=== PATIENT | female | born 1990 | race Caucasian/White ===

== ENCOUNTER → 2016-09-09 | Outpatient (CLI) | payer OTHER ==
[~2016-09-09] MED LIST: DINOPROSTONE 10 MG INSERT.ER VAGINAL ONE
[2016-09-09 17:00] VITALS: BP 119/77; PULSE 93; RESP 16; TEMP 97.5; BMI 26.6
== END | disposition home or self-care (01) ==
LOC: UNDOADMIN 16:38 → FBPOP 16:38 → 4FBP 16:38 → EDSTATUS 17:00 → UNDODISIN 17:40
PROVIDERS: ATTEND Obstetrics & Gynecology
DX: Z34.93 Encounter for supervision of normal pregnancy, unspecified, third trimester (principal)
CPT/HCPCS: 59025

== ENCOUNTER 2016-09-10 06:35 | Inpatient (IN) | payer OTHER ==
[2016-09-10] MEDS ORDERED: CARBOPROST TROMETHAMINE 250 MCG/ML 1 ML AMP IM PRN (06:51)
[2016-09-10] MEDS ORDERED: OXYTOCIN 10 UNIT/ML 1 ML VIAL IM PRN (06:51)
[2016-09-10] MEDS ORDERED: TERBUTALINE 1 MG/ML VIAL SQ PRN (06:51)
[2016-09-10] MEDS ORDERED: METHYLERGONOVINE 0.2 MG/ML 1 ML AMP IM PRN (06:51)
[2016-09-10] MEDS ORDERED: LIDOCAINE 1% (PF) 10 MG/ML (30 ML SDV) SQ PRN (06:51)
[2016-09-10 06:58] VITALS: BMI 26.6
[2016-09-10] MEDS: LACTATED RINGERS 1,000 ML IV SCH ×3 (06:58→15:48)
[2016-09-10] MEDS ORDERED: OXYTOCIN 30 UNITS/500 ML NS 30 UNIT in SALINE 1 500ML.BAG IV SCH ×2 (07:00→19:45)
[2016-09-10 07:05] LABS: Basophils # (A) 0.1 k/uL (0-0.2); Basophils % (A) 1 %; CH 30.7; CHCM 34.1; Eosinophils # (A) 0.1 k/uL (0-0.7); Eosinophils % (A) 1 %; HCT 37.7 % (34.0-46.0); HDW 2.61; HGB 12.2 gm/dL (11.4-16.0); Luc # (Auto) 0.15; Luc % (Auto) 2; Lymphocytes # (A) 1.9 k/uL (1.0-4.8); Lymphocytes % (A) 20 %; MCH 29.4 pg (25.0-35.0); MCHC 32.5 g/dL (31.0-37.0); MCV 90.6 fL (80.0-100.0); Mean Platelet Volume 8.8; Monocytes # (A) 0.4 k/uL (0-1.0); Monocytes % (A) 4 %; Neutrophils # (A) 7.1 k/uL (1.3-7.7); Neutrophils % (A) 73 %; RBC 4.17 m/uL (3.80-5.40); RDW 13.4 % (11.5-15.5); WBC 9.7 k/uL (3.8-10.6); WBC (Perox) 10.15
[2016-09-10] MEDS ORDERED: BUTORPHANOL 1 MG/ML 1 ML VIAL IV PRN (12:11)
[2016-09-10] MEDS ORDERED: SODIUM CHLORIDE 0.9% 100 ML BAG ONE (15:35)
[2016-09-10] MEDS ORDERED: BUPIVACAINE (PF) 0.25% 30 ML VIAL ONE (15:35)
[2016-09-10] MEDS ORDERED: fentaNYL (PF) 50 MCG/ML 5 ML AMP ONE (15:35)
[2016-09-10] MEDS ORDERED: BUPIVACAINE (PF) 0.25% 25 ML, fentaNYL (PF) 200 MCG in SODIUM CHLORIDE 0.9% 71 ML EPIDURAL ONE (17:10)
--- NOTE | 2016-09-10 19:39 | P.HPOB ---
History of Present Illness H&P Date: 09/10/16 Chief Complaint: Intrauterine at term Patient is a 26-year-old at 39 weeks gestation who arrives for induction of labor. Her course was unremarkable and she is feeling well at this time. She was brought in last night for Cervidil ripening however her cervix was dilated to 1 cm that point and she was then sent home. Admission at that time was canceled this morning artificial rupture membranes was performed and clear fluid is noted. She is beginning to contract and overall she is doing well. Pertinent labs did include A+ blood type Rh antibody was negative rubella was immune hepatitis B surface antigen and RPR and GBS were negative. Assessment intrauterine at term. Plan expect spontaneous vaginal delivery. Past Medical History Past Medical History: No Reported History History of Any Multi-Drug Resistant Organisms: None Reported Past Surgical History: No Surgical Hx Reported Past Anesthesia/Blood Transfusion Reactions: No Reported Reaction Past Psychological History: No Psychological Hx Reported Smoking Status: Never smoker Past Alcohol Use History: None Reported Past Drug Use History: None Reported - Past Family History Mother Family Medical History: Cancer Additional Family Medical History / Comment(s): Breast Medications and Allergies Home Medications Medication Instructions Recorded Confirmed Type Pnv with Ca,No.72/Iron/FA 1 each PO DAILY 09/09/16 09/10/16 History [ Plus Tablet] Allergies Allergy/AdvReac Type Severity Reaction Status Date / Time Sulfa (Sulfonamide Allergy Rash/Hives Verified 09/09/16 16:53 Antibiotics) Exam Osteopathic Statement: *. No significant issues noted on an osteopathic structural exam other than those noted in the History and Physical/Consult. - Vital Signs Vital signs: Vital Signs Temp Pulse Resp BP Pulse Ox 09/10/16 19:00 99.6 F 78 16 120/62 09/10/16 18:45 107 H 16 112/61 97 09/10/16 18:30 100 F H 103 H 16 114/66 97 09/10/16 06:47 97.0 F L 86 16 108/66 98 Intake and Output 09/10/16 09/10/16 09/10/16 06:59 14:59 22:59 Intake Total 1000 Balance 1000 Intake: Intake, IV Titration 1000 Amount Lactated Ringers 1,000 ml 1000 @ 125 mls/hr IV .Q8H MAURICIO Rx#:[id number] Other: # Voids 0 Weight 70.307 kg - OBG Physical Exam Breast: both: normal (no masses) Abdomen: bowel sounds normal, no diffuse tenderness, no bruit present, no guarding noted, no hepatomegaly, no splenomegaly, no mass Vulva: both: normal Vagina: normal moisture, no discharge Cervix: no lesion, no discharge Uterus: normal size, normal contour Adnexa: both: normal Anus/Rectum: normal perianal skin, no rectal mass, no hemorrhoids, heme negative Results Result Diagrams: 09/10/16 06:50
--- NOTE | 2016-09-10 19:40 | P.PROBDLV ---
Vaginal Delivery Note - . Vaginal Delivery Note: Patient progressed to complete and pushing with spontaneous vaginal delivery of a viable male over a second-degree midline laceration. Following delivery of the head mouth and nares were bulb suctioned anterior posterior shoulders were delivered with gentle downward and upward traction. Once baby was fully delivered he was placed on his mother's abdomen where the umbilical cord was clamped cut usual fashion an nursery personnel was present to assume care. Placenta was then delivered intact and Pitocin was added to the IV. scores and weight are not on the chart but both mother and baby appear stable. Secondary midline laceration was then repaired with 3-0 Vicryl following 1% Xylocaine for analgesia in usual fashion.
[2016-09-10] MEDS ORDERED: diphenhydrAMINE 50 MG/ML 1 ML VIAL IVP PRN ×2 (19:43)
[2016-09-10] MEDS ORDERED: diphenhydrAMINE 25 MG CAP PO PRN (19:43)
[2016-09-10] MEDS ORDERED: Acetaminophen-Codeine 300-30mg TAB PO PRN ×2 (19:43)
[2016-09-10] MEDS ORDERED: LANOLIN CREAM 5 GM TUBE TOPICAL PRN (19:43)
[2016-09-10] MEDS ORDERED: SIMETHICONE 80 MG CHEWABLE PO PRN (19:43)
[2016-09-10] MEDS ORDERED: HYDROCORTISONE 2.5% RECTAL CREAM 30 GM TUBE RECTAL PRN (19:43)
[2016-09-10] MEDS ORDERED: ZOLPIDEM 5 MG TAB PO PRN (19:43)
[2016-09-10] MEDS ORDERED: BENZOCAINE/MENTHOL SPRAY 1 GM/SPRAY AEROSOL TOPICAL PRN (19:43)
[2016-09-10] MEDS ORDERED: diphenhydrAMINE 50 MG CAP PO PRN (19:43)
[2016-09-10] MEDS ORDERED: WITCH HAZEL 1 EACH MED..PAD TOPICAL PRN (19:43)
[2016-09-11] MEDS: SENNOSIDES-DOCUSATE SODIUM 1 EACH TAB PO SCH ×3 (02:57→20:25)
[2016-09-11] MEDS: IBUPROFEN 600 MG TAB PO PRN ×2 (04:17→16:20)
--- NOTE | 2016-09-11 07:39 | P.DS ---
Providers Date of admission: 09/10/16 06:35 Expected date of discharge: 09/11/16 Attending physician: Phi Smith Hospital Course: Patient is doing very well day 1. She is ambulating, voiding, and tolerating her diet. She voices no complaints. Her vital signs stable and afebrile. Her heart is regular, lungs are clear, abdomen is soft and nontender. Uterus is firm below the umbilicus and her lochia is reported be light. She plans going home tonight. Prescriptions for pain medicine a been provided including Tylenol 3 and Motrin. Discharge instructions are thoroughly reviewed and all questions are answered for her prior to her discharge. We'll plan discharged home tonight. Assessment day 1. Plan discharged home tonight follow up with me in 6 weeks. Patient Condition at Discharge: Good Plan - Discharge Summary New Discharge Prescriptions: Acetaminophen-Codeine 300-30mg [Tylenol #3] 1 tab PO Q4H PRN #30 tablet PRN Reason: Pain Ibuprofen [Motrin] 600 mg PO Q6HR PRN #30 tab PRN Reason: Pain Discharge Medication List Pnv with Ca,No.72/Iron/FA [ Plus Tablet] 1 each PO DAILY 09/09/16 [ History] Acetaminophen-Codeine 300-30mg [Tylenol #3] 1 tab PO Q4H PRN #30 tablet [Rx] Ibuprofen [Motrin] 600 mg PO Q6HR PRN #30 tab 09/11/16 [Rx] Follow up Appointment(s)/Referral(s): Phi Smith DO [Doctor of Osteopathic Medicine] - 6 Weeks Activity/Diet/Wound Care/Special Instructions: No heavy lifting, limit stairs and driving and pelvic rest. If any high temperatures, heavy bleeding, or severe pain call my office
[2016-09-11] MEDS: ACETAMINOPHEN TAB 325 MG TAB PO PRN ×2 (08:20→19:52)
[2016-09-12] MEDS: IBUPROFEN 600 MG TAB PO PRN (03:38)
[2016-09-12] MEDS: ACETAMINOPHEN TAB 325 MG TAB PO PRN (08:00)
[2016-09-12 08:54] VITALS: BP 110/64; PULSE 71; RESP 17; TEMP 98
[2016-09-12] MEDS: SENNOSIDES-DOCUSATE SODIUM 1 EACH TAB PO SCH (08:56)
--- NOTE | 2016-09-12 11:29 | P.DS ---
Providers Date of admission: 09/10/16 06:35 Expected date of discharge: 09/12/16 Attending physician: Phi Smith [facility] Course: In the end yesterday patient did not go home. She stayed until today due to feeding issues with baby. There've been no changes overnight she is still stable for discharge and will go home today. Discharge instructions were again reviewed and all questions are answered for her no other changes to yesterday discharge summary are present. Patient Condition at Discharge: Good Plan - Discharge Summary New Discharge Prescriptions: Acetaminophen-Codeine 300-30mg [Tylenol #3] 1 tab PO Q4H PRN #30 tablet PRN Reason: Pain Ibuprofen [Motrin] 600 mg PO Q6HR PRN #30 tab PRN Reason: Pain Discharge Medication List Pnv with Ca,No.72/Iron/FA [ Plus Tablet] 1 each PO DAILY 09/09/16 [ History] Acetaminophen-Codeine 300-30mg [Tylenol #3] 1 tab PO Q4H PRN #30 tablet [Rx] Ibuprofen [Motrin] 600 mg PO Q6HR PRN #30 tab 09/11/16 [Rx] Follow up Appointment(s)/Referral(s): Phi Smith DO [Doctor of Osteopathic Medicine] - 6 Weeks Activity/Diet/Wound Care/Special Instructions: No heavy lifting, limit stairs and driving and pelvic rest. If any high temperatures, heavy bleeding, or severe pain call my office Discharge Disposition: HOME SELF-CARE
== END 2016-09-12 13:10 | disposition home or self-care (01) | DRG 775 ==
LOC: 4FBP 06:35
PROVIDERS: ADMIT Obstetrics & Gynecology; ATTEND Obstetrics & Gynecology
PROC: 10E0XZZ Delivery of Products of Conception, External Approach (ICD-10-PCS; principal; 2016-09-10)
PROC: 0KQM0ZZ Repair Perineum Muscle, Open Approach (ICD-10-PCS; 2016-09-10)
PROC: 10907ZC Drainage of Amniotic Fluid, Therapeutic from Products of Conception, Via Natural or Artificial Opening (ICD-10-PCS; 2016-09-10)
PROC: 3E033VJ Introduction of Other Hormone into Peripheral Vein, Percutaneous Approach (ICD-10-PCS; 2016-09-10)
PROC: 3E0S3NZ Introduction of Analgesics, Hypnotics, Sedatives into Epidural Space, Percutaneous Approach (ICD-10-PCS; 2016-09-10)
DX: O70.1 Second degree perineal laceration during delivery (principal); Z37.0 Single live birth; Z88.2 Allergy status to sulfonamides; Z3A.39 39 weeks gestation of pregnancy; Z80.3 Family history of malignant neoplasm of breast
CPT/HCPCS: 85025; 88307

== ENCOUNTER → 2017-04-18 | Outpatient (CLI) | payer OTHER ==
[2017-04-18 16:40] LABS: Blood Urea Nitrogen 7 mg/dL (7-17); Non-African American GFR(MDRD) >60 (>60 ml/min/1.73 sqM)
== END | disposition home or self-care (01) ==
LOC: LABWHC1 16:09
PROVIDERS: ATTEND Psychiatry & Neurology Neurology
DX: R51 Headache (principal)
CPT/HCPCS: 36415; 82565; 84520

== ENCOUNTER → 2017-04-20 | Outpatient (CLI) | payer OTHER ==
--- NOTE | 2017-04-20 13:31 | MR ---
EXAMINATION TYPE: MR angio head wo con DATE OF EXAM: 04/20/2017 COMPARISON: Brain MR same date HISTORY: MIGRAINES TECHNIQUE: Time of flight images focusing on the [place] of [place] were performed without contrast. FINDINGS: Internal carotid arteries are patent, vertebrobasilar system is patent. There is no signifi cant stenosis. The origin of the right middle cerebral artery there is a small outpouching of the pos terior internal carotid artery on the right. This measures 1.5 mm on axial image 81 and is relatively symmetric as seen on axial image 74 on the left. There is a fenestration present along the anterior cerebral artery on the right. No filling defect to suggest dissection. IMPRESSION: Findings may representing congenital variants rather than small aneurysms, follow-up to assess for st ability.
--- NOTE | 2017-04-20 13:37 | MR ---
EXAMINATION TYPE: MR brain wo/w con DATE OF EXAM: 04/20/2017 COMPARISON: MR angiogram of the head same day HISTORY: MIGRAINES TECHNIQUE: Multiplanar, multisequence images of the brain and brainstem is performed without and with IV contras t, utilizing 14 mL intravenous MultiHance . FINDINGS: Diffusion weighted images demonstrate no evidence of a recent infarct or other diffusion ab normality. There is no extra-axial fluid collection or significant white matter signal abnormality, 2 punctate foci of hyperintensity in the left frontal white matter of questionable clinical significa nce. The ventricular system and cisternal spaces are normal in size and appearance. The brain volum e is age appropriate. Midline structures demonstrate normal morphology. The craniocervical junction appears within normal limits. Post contrast images demonstrate no abnormal enhancement. The dural venous sinuses appear pa tent. The visualized sinuses are clear and the globes are intact. IMPRESSION: Nonspecific white matter hyperintensities likely of no clinical significance but can be s een with migraine headaches. Follow-up as indicated.
== END | disposition home or self-care (01) ==
LOC: RADMRIMAIN 09:34
PROVIDERS: ATTEND Psychiatry & Neurology Neurology
DX: R90.82 White matter disease, unspecified (principal); I67.1 Cerebral aneurysm, nonruptured; D49.6 Neoplasm of unspecified behavior of brain
CPT/HCPCS: 70544; 70553; A9577

== ENCOUNTER → 2018-04-28 | Outpatient (CLI) | payer OTHER ==
[2018-04-28 13:08] LABS: HCT 34.8 % (34.0-46.0); HGB 11.5 gm/dL (11.4-16.0); MCH 29.6 pg (25.0-35.0); MCHC 33.2 g/dL (31.0-37.0); MCV 89.3 fL (80.0-100.0); Mean Platelet Volume 8.3; Platelet Count 241 k/uL (150-450); RBC 3.89 m/uL (3.80-5.40); WBC 10.2 k/uL (3.8-10.6)
[2018-04-28 13:25] LABS: Glucose 103 mg/dL (74-99)
== END | disposition home or self-care (01) ==
LOC: LABWHC1 12:37
PROVIDERS: ATTEND Obstetrics & Gynecology
DX: Z34.81 Encounter for supervision of other normal pregnancy, first trimester (principal); Z3A.00 Weeks of gestation of pregnancy not specified
CPT/HCPCS: 36415; 82565; 82947; 84443; 85027; 86762; 86780; 86850; 86900; 86901; 87340

== ENCOUNTER 2018-09-26 14:46 | Inpatient (IN) | payer OTHER ==
[2018-09-26] MEDS ORDERED: CARBOPROST TROMETHAMINE 250 MCG/ML 1 ML AMP IM PRN (15:40)
[2018-09-26] MEDS ORDERED: OXYTOCIN 10 UNIT/ML 1 ML VIAL IM PRN (15:40)
[2018-09-26] MEDS ORDERED: METHYLERGONOVINE 0.2 MG/ML 1 ML AMP IM PRN (15:40)
[2018-09-26] MEDS ORDERED: LIDOCAINE 0.5% (PF) 5 MG/ML (50 ML SDV) SQ PRN (15:40)
[2018-09-26] MEDS ORDERED: TERBUTALINE 1 MG/ML VIAL SQ PRN (15:40)
[2018-09-26] MEDS: LACTATED RINGERS 1,000 ML IV SCH ×2 (15:55→16:15)
[2018-09-26 16:24] LABS: Anisocytosis Slight; Basophils % (A) 0 %; Eosinophils # (A) 0.1 k/uL (0-0.7); Eosinophils % (A) 1 %; HGB 9.9 gm/dL (11.4-16.0); Hypochromasia Marked; Lymphocytes # (A) 1.8 k/uL (1.0-4.8); Lymphocytes % (A) 16 %; MCH 23.6 pg (25.0-35.0); MCHC 30.9 g/dL (31.0-37.0); MCV 76.2 fL (80.0-100.0); Mean Platelet Volume 8.2; Microcytosis Slight; Monocytes # (A) 0.4 k/uL (0-1.0); Monocytes % (A) 4 %; Neutrophils # (A) 8.6 k/uL (1.3-7.7); Neutrophils % (A) 76 %; Platelet Count 265 k/uL (150-450); Poikilocytosis Slight; WBC 11.2 k/uL (3.8-10.6)
[2018-09-26] MEDS ORDERED: SODIUM CHLORIDE 0.9% 100 ML BAG ONE (16:50)
[2018-09-26] MEDS ORDERED: ROPIVACAINE 5MG/ML 20ML VIAL ONE (16:50)
[2018-09-26] MEDS ORDERED: fentaNYL (PF) 50 MCG/ML 5 ML AMP ONE (16:50)
[2018-09-26 18:35] VITALS: BMI 29.0
[2018-09-26] MEDS ORDERED: diphenhydrAMINE 50 MG CAP PO PRN (18:45)
[2018-09-26] MEDS ORDERED: WITCH HAZEL 1 EACH MED..PAD TOPICAL PRN (18:45)
[2018-09-26] MEDS ORDERED: diphenhydrAMINE 25 MG CAP PO PRN (18:45)
[2018-09-26] MEDS ORDERED: SIMETHICONE 80 MG CHEWABLE PO PRN (18:45)
[2018-09-26] MEDS ORDERED: ZOLPIDEM 5 MG TAB PO PRN (18:45)
[2018-09-26] MEDS ORDERED: OXYTOCIN 20 UNITS/1000 ML NS 1,000 ML IV SCH (18:45)
[2018-09-26] MEDS ORDERED: HYDROCORTISONE 2.5% RECTAL CREAM 30 GM TUBE RECTAL PRN (18:45)
[2018-09-26] MEDS ORDERED: diphenhydrAMINE 50 MG/ML 1 ML VIAL IVP PRN ×2 (18:45)
[2018-09-26] MEDS ORDERED: BENZOCAINE/MENTHOL SPRAY 1 GM/SPRAY AEROSOL TOPICAL PRN (18:45)
[2018-09-26] MEDS ORDERED: LANOLIN CREAM 5 GM TUBE TOPICAL PRN (18:45)
[2018-09-26] MEDS ORDERED: ACETAMINOPHEN TAB 325 MG TAB PO PRN (18:45)
--- NOTE | 2018-09-26 18:49 | P.HPOB ---
History of Present Illness H&P Date: 09/26/18 Chief Complaint: Labor 28-year-old presents at 39 weeks and 5 days and labor. Her cervix changed in triage from 4 cm to 5 centers dilated, 80% effaced, and -2 station. She is slim every 1-3 minutes. heart tones 135-140 with moderate variability and reactive. She had an epidural for pain control. At 1711 amniotomy was performed and clear fluid noted. Her cervix was completely dilated at 1806. She pushed, and delivered a viable male over intact perineum under epidural anesthesia 1818. Head delivered OA, anterior shoulder delivered gentle downward guidance of the posterior shoulder and rest of body. Nose and mouth bulb suctioned, cord clamped and cut, infant placed on mother's abdomen. Apgars 9, 9, weight 8 lbs. 6 oz. Placenta delivered spontaneously, intact with three-vessel cord at 182. Vagina, cervix, perineum inspected. No lacerations noted. Estimated blood loss 100 mL. Mother and baby in stable condition. Past Medical History Past Medical History: No Reported History Additional Past Medical History / Comment(s): migraines History of Any Multi-Drug Resistant Organisms: None Reported Past Surgical History: No Surgical Hx Reported Past Anesthesia/Blood Transfusion Reactions: No Reported Reaction Past Psychological History: No Psychological Hx Reported Smoking Status: Former smoker Past Alcohol Use History: None Reported Past Drug Use History: None Reported - Past Family History Mother Family Medical History: Cancer Additional Family Medical History / Comment(s): Breast Medications and Allergies Home Medications Medication Instructions Recorded Confirmed Type Pnv,Calcium 72/Iron/Folic Acid 1 each PO DAILY 09/09/16 09/26/18 History [ Plus Tablet] Allergies Allergy/AdvReac Type Severity Reaction Status Date / Time Sulfa (Sulfonamide Allergy Rash/Hives Verified 09/26/18 14:53 Antibiotics) Exam Osteopathic Statement: *. No significant issues noted on an osteopathic structural exam other than those noted in the History and Physical/Consult. Vital Signs Temp Pulse Resp BP 09/26/18 18:27 98.4 F 91 18 129/81 09/26/18 14:55 96.7 F L 104 H 18 114/77 Intake and Output 09/26/18 09/26/18 09/26/18 06:59 14:59 22:59 Other: Weight 76.657 kg Results Result Diagrams: 09/26/18 15:55 Abnormal Lab Results - Last 24 Hours (Table) 09/26/18 Range/Units 15:55 WBC 11.2 H (3.8-10.6) k/uL Hgb 9.9 L (11.4-16.0) gm/dL Hct 32.0 L (34.0-46.0) % MCV 76.2 L (80.0-100.0) fL MCH 23.6 L (25.0-35.0) pg MCHC 30.9 L (31.0-37.0) g/dL RDW 16.0 H (11.5-15.5) % Neutrophils # 8.6 H (1.3-7.7) k/uL
[2018-09-26] MEDS: SENNOSIDES-DOCUSATE SODIUM 1 EACH TAB PO SCH (21:05)
[2018-09-26] MEDS: IBUPROFEN 600 MG TAB PO PRN (21:12)
--- NOTE | 2018-09-27 02:30 | P.MSEPDOC ---
Presenting Problems - Arrival Data Date of Arrival on Unit: 09/26/18 Time of Arrival on Unit: 15:40 Mode of Transport: Ambulatory - Complaint OB-Reason for Admission/Chief Complaint: Possible Onset of Labor Comment: pt present with c/o contractions getting stronger in the last hour, Medical History - Information : 2 Para: 1 Term: 1 : 0 Abortions: Spontaneous or Elective: 0 Number of Living Children: 1 - Gestational Age Gestational Age by MARIO ALBERTO (wks/days): 39 Weeks and 5 Days Review of Systems - Review of Systems Constitutional: No problems Breast: No problems ENT: No problems Cardiovascular: No problems Respiratory: No problems Gastrointestinal: No problems Genitourinary: No problems Musculoskeletal: No problems Neurological: No problems Skin: No problems Vital Signs - Temperature Temperature: 98.7 F Temperature Source: Axillary - Pulse Right Brachial Pulse Rate: 99 Pulse Assessment Method: Automatic Cuff - Respirations Respiratory Rate: 18 Oxygen Delivery Method: Room Air O2 Sat by Pulse Oximetry: 98 - Blood Pressure Right Arm Blood Pressure: 119/67 Blood Pressure Mean: 84 Blood Pressure Source: Automatic Cuff Medical Screen Scoring (Pre) - Cervical Exam Dilation: 4-7 cm = 2 Effacement: More than 50% = 2 Membranes: Intact - Uterine Contractions Frequency: > or = 36 weeks =2 Duration: > 40 seconds = 2 Intensity: N/A - Maternal Vital Signs Maternal Temperature: N/A Maternal Blood Pressure: N/A Signs of Preeclampsia: N/A Maternal Respirations: N/A - Pain Assessment Pain Scale Used: Numeric (1 - 10) Pain Intensity: 7 Pain Management Goal: 4 Pain Description: *Acute, Pressure Pain Radiation Location: none Pain Frequency: Intermittent Pain Duration: 1 Pain Duration Units: Hours Pain Behavior: Guarding, Moving Slowly, Vocalization Pain Aggravating Factors: Contractions - Maternal Trauma Maternal Trauma: N/A - Assessment Baseline FHR: 120 Heart Rate - NICHD Category: Category I (Normal) = 0 NST: Reactive Position: N/A Station: N/A - Total Score Total Score (Pre): 8 - Level of Risk Level of Risk: Medium (6-9) Physician Notification (Pre) - Physician Notified Physician Notified Date: 09/26/18 Physician Notified Time: 15:40 Physician/Practitioner Notifed:: Dr. Chawla Spoke With: Dr. Chawla - Notification Comment Comment: admit for labor Disposition - Disposition OB Disposition: Admit, LDRP Suite I agree with the RN Medical Screening Exam: Yes Risk & Benefit of care provided described in d/c instruction: Yes Diagnosis: ENCOUNTER FOR FULL-TERM UNCOMPLICATED DELIVERY
[2018-09-27] MEDS: IBUPROFEN 600 MG TAB PO PRN (07:35)
[2018-09-27] MEDS: SENNOSIDES-DOCUSATE SODIUM 1 EACH TAB PO SCH (07:36)
--- NOTE | 2018-09-27 08:35 | P.DS ---
Providers Date of admission: 09/26/18 15:45 Expected date of discharge: 09/27/18 Attending physician: Phi Smith Primary care physician: Stated None Hospital Course: Patient is doing very well day 1. She's ablating, voiding, and she is tolerating her diet. She voices no complaints and requests discharged home tonight. Prescription for breast pump provided. Discharge instructions thoroughly reviewed. On physical exam vital signs are stable and afebrile. Heart regular, lungs clear, extremities without pain. Abdomen is soft uterus is firm and lochia is reported be light. Assessment day 1. Plan discharged home follow up with me in 6 weeks. Patient Condition at Discharge: Good Plan - Discharge Summary New Discharge Prescriptions: No Action Pnv,Calcium 72/Iron/Folic Acid [ Plus Tablet] 1 each PO DAILY Discharge Medication List Pnv,Calcium 72/Iron/Folic Acid [ Plus Tablet] 1 each PO DAILY 09/09/16 [ History] Follow up Appointment(s)/Referral(s): Phi Smith DO [Doctor of Osteopathic Medicine] - 6 Weeks Activity/Diet/Wound Care/Special Instructions: No heavy lifting, limit stairs and driving, and pelvic rest. If any high temperatures, heavy bleeding, or severe pain call my office Discharge Disposition: HOME SELF-CARE
[2018-09-27 16:45] VITALS: BP 112/70; PULSE 79; RESP 16; TEMP 98.5
== END 2018-09-27 19:27 | disposition home or self-care (01) | DRG 807 ==
LOC: FBPOP 14:46 → 4FBP 15:45
PROVIDERS: ADMIT Obstetrics & Gynecology; ATTEND Obstetrics & Gynecology
PROC: 10907ZC Drainage of Amniotic Fluid, Therapeutic from Products of Conception, Via Natural or Artificial Opening (ICD-10-PCS; principal; 2018-09-26)
PROC: 10E0XZZ Delivery of Products of Conception, External Approach (ICD-10-PCS; principal; 2018-09-26)
PROC: 3E0R3NZ Introduction of Analgesics, Hypnotics, Sedatives into Spinal Canal, Percutaneous Approach (ICD-10-PCS; principal; 2018-09-26)
PROC: 00HU33Z Insertion of Infusion Device into Spinal Canal, Percutaneous Approach (ICD-10-PCS; principal; 2018-09-26)
DX: O80 Encounter for full-term uncomplicated delivery (principal); Z37.0 Single live birth; Z3A.39 39 weeks gestation of pregnancy; Z87.891 Personal history of nicotine dependence
CPT/HCPCS: 59025; 85025; 86850; 86900; 86901; 99213

== ENCOUNTER 2020-12-20 05:44 | Inpatient (IN) | payer OTHER ==
[2020-12-20] MEDS ORDERED: SODIUM CHLORIDE 0.9% 1,000 ML IV ONE (06:04)
[2020-12-20 06:25] LABS: Basophils % (A) 0 %; Eosinophils % (A) 0 %; HCT 35.3 % (34.0-46.0); HGB 12.1 gm/dL (11.4-16.0); Lymphocytes % (A) 5 %; MCH 30.3 pg (25.0-35.0); MCHC 34.4 g/dL (31.0-37.0); Mean Platelet Volume 8.9; Monocytes # (A) 0.3 k/uL (0-1.0); Monocytes % (A) 2 %; Neutrophils # (A) 17.7 k/uL (1.3-7.7); Neutrophils % (A) 92 %; Platelet Count 350 k/uL (150-450); RBC 4.01 m/uL (3.80-5.40); RDW 12.5 % (11.5-15.5); WBC 19.2 k/uL (3.8-10.6)
--- NOTE | 2020-12-20 06:28 | ED ---
General Adult HPI - General Chief complaint: Syncope Stated complaint: Abd Pain Time Seen by Provider: 12/20/20 06:04 Source: patient Mode of arrival: wheelchair - History of Present Illness Initial comments: 30yo female with familial hx of breast cancer presenting for cc of diffuse abdominal pain radiating between the right shoulder blades. Patient states that she woke up this evening and began having diarrhea she states she was also dry heaving. Denies actual vomiting. Patient states that she had 3 syncopal episodes. Between the time of waking up and in between episodes of diarrhea/dry heaving. Pt denies blood in stools or dark stools. Denies fevers, cough but states she was exposed to covid 2 weeks ago. She denies a chest pain or shortness of breath, or pain with deep inspiration. - Related Data Home Medications Medication Instructions Recorded Confirmed No Known Home Medications 12/20/20 12/20/20 Allergies Allergy/AdvReac Type Severity Reaction Status Date / Time Sulfa (Sulfonamide Allergy Rash/Hives Verified 12/20/20 07:54 Antibiotics) Review of Systems ROS Statement: Those systems with pertinent positive or pertinent negative responses have been documented in the HPI. ROS Other: All systems not noted in ROS Statement are negative. Past Medical History Past Medical History: No Reported History Additional Past Medical History / Comment(s): migraines History of Any Multi-Drug Resistant Organisms: None Reported Past Surgical History: No Surgical Hx Reported Past Anesthesia/Blood Transfusion Reactions: No Reported Reaction Past Psychological History: No Psychological Hx Reported Smoking Status: Former smoker Past Alcohol Use History: None Reported Past Drug Use History: None Reported - Past Family History Mother Family Medical History: Cancer Additional Family Medical History / Comment(s): Breast General Exam - General Exam Comments Initial Comments: General: The patient is awake and alert, in no distress, and does not appear acutely ill. Eye: +3 mm pupils are equal, round and reactive to light, extra-ocular movements are intact. No nystagmus. There is normal conjunctiva bilaterally. No signs of icterus. Ears, nose, mouth and throat: There are moist mucous membranes and no oral lesions. Neck: The neck is supple, there is no tenderness or JVD. Cardiovascular: There is a regular rate and rhythm. No murmur, rub or gallop is appreciated. Respiratory: Lungs are clear to auscultation, respirations are non-labored, breath sounds are equal. No wheezes, stridor, rales, or rhonchi. Gastrointestinal: Soft, non-distended, non-specific abdominal pain, abdomen is without masses or organomegaly noted. There is no rebound or guarding present. Musculoskeletal: Normal ROM, no tenderness. Strength 5/5. Sensation intact. Radial pulses equal bilaterally 2+. Neurological: A&O x 3. CN II-XII intact grossly, There are no obvious motor or sensory deficits. Coordination appears grossly intact. Speech is normal. Skin: Skin is warm and dry and no rashes or lesions are noted. Psychiatric: Cooperative, appropriate mood & affect, normal judgment. Course Vital Signs 12/20/20 12/20/20 05:44 07:24 Temperature 97.6 F Pulse Rate 116 H 92 Respiratory 19 18 Rate Blood Pressure 101/73 109/72 O2 Sat by Pulse 100 98 Oximetry EKG Findings - EKG Comments: EKG Findings:: Ventricular rate 121 bpm, AL interval 120 ms, QRS tracing 70 ms, QT/QTC 308/437 ms. This is sinus tachycardia no ST elevation or depression appreciated Medical Decision Making - Medical Decision Making Patient has leukocytosis felt to be likely reactive. Patient denies any urinary symptoms. Patient has nonspecific abdominal pain however her abdomen does a ppear distended. Pelvic ultrasound revealed a pelvic mass 10cm. concern ovarian neoplasm. pt CT redemonstrates these findings. pt denied chest pain,dypsnea and HR normalized after pain control. pt oxygenating well on RA. Patient will be admitted for oncology and OBGYN consultation for further management of neoplasm as well as for pain control. Dr Long who spoke with accepting provider Dr Bradley is agreeable to this care plan. - Lab Data Result diagrams: 12/20/20 06:12 12/20/20 06:12 Lab Results 12/20/20 12/20/20 12/20/20 Range/Units 06:12 06:12 06:12 WBC 19.2 H (3.8-10.6) k/uL RBC 4.01 (3.80-5.40) m/uL Hgb 12.1 (11.4-16.0) gm/dL Hct 35.3 (34.0-46.0) % MCV 88.0 (80.0-100.0) fL MCH 30.3 (25.0-35.0) pg MCHC 34.4 (31.0-37.0) g/dL RDW 12.5 (11.5-15.5) % Plt Count 350 (150-450) k/uL MPV 8.9 Neutrophils % 92 % Lymphocytes % 5 % Monocytes % 2 % Eosinophils % 0 % Basophils % 0 % Neutrophils # 17.7 H (1.3-7.7) k/uL Lymphocytes # 1.0 (1.0-4.8) k/uL Monocytes # 0.3 (0-1.0) k/uL Eosinophils # 0.0 (0-0.7) k/uL Basophils # 0.0 (0-0.2) k/uL Sodium (137-145) mmol/L Potassium (3.5-5.1) mmol/L Chloride (98-107) mmol/L Carbon Dioxide (22-30) mmol/L Anion Gap mmol/L BUN (7-17) mg/dL Creatinine (0.52-1.04) mg/dL Est GFR (CKD-EPI)AfAm (>60 ml/min/1.73 sqM) Est GFR (CKD-EPI)NonAf (>60 ml/min/1.73 sqM) Glucose (74-99) mg/dL Calcium (8.4-10.2) mg/dL Total Bilirubin (0.2-1.3) mg/dL AST (14-36) U/L ALT (4-34) U/L Alkaline Phosphatase (38-126) U/L Troponin I (0.000-0.034) ng/mL Total Protein (6.3-8.2) g/dL Albumin (3.5-5.0) g/dL Urine Color Yellow Urine Appearance Cloudy H (Clear) Urine pH 6.0 (5.0-8.0) Ur Specific Rodney 1.037 H (1.001-1.035) Urine Protein 1+ H (Negative) Urine Glucose (UA) Negative (Negative) Urine Ketones 1+ H (Negative) Urine Blood Negative (Negative) Urine Nitrite Negative (Negative) Urine Bilirubin Negative (Negative) Urine Urobilinogen 2.0 (<2.0) mg/dL Ur Leukocyte Esterase Negative (Negative) Urine WBC 2 (0-5) /hpf Ur Squamous Epith Cells 3 (0-4) /hpf Urine Bacteria Rare H (None) /hpf Urine Mucus Many H (None) /hpf Urine HCG, Qual Not Detected (Not Detectd) Coronavirus (PCR) (Not Detectd) 12/20/20 12/20/20 12/20/20 Range/Units 06:12 06:12 06:13 WBC (3.8-10.6) k/uL RBC (3.80-5.40) m/uL Hgb (11.4-16.0) gm/dL Hct (34.0-46.0) % MCV (80.0-100.0) fL MCH (25.0-35.0) pg MCHC (31.0-37.0) g/dL RDW (11.5-15.5) % Plt Count (150-450) k/uL MPV Neutrophils % % Lymphocytes % % Monocytes % % Eosinophils % % Basophils % % Neutrophils # (1.3-7.7) k/uL Lymphocytes # (1.0-4.8) k/uL Monocytes # (0-1.0) k/uL Eosinophils # (0-0.7) k/uL Basophils # (0-0.2) k/uL Sodium 133 L (137-145) mmol/L Potassium 4.8 (3.5-5.1) mmol/L Chloride 103 (98-107) mmol/L Carbon Dioxide 20 L (22-30) mmol/L Anion Gap 10 mmol/L BUN 23 H (7-17) mg/dL Creatinine 0.70 (0.52-1.04) mg/dL Est GFR (CKD-EPI)AfAm >90 (>60 ml/min/1.73 sqM) Est GFR (CKD-EPI)NonAf >90 (>60 ml/min/1.73 sqM) Glucose 184 H (74-99) mg/dL Calcium 9.5 (8.4-10.2) mg/dL Total Bilirubin 0.6 (0.2-1.3) mg/dL AST 30 (14-36) U/L ALT 18 (4-34) U/L Alkaline Phosphatase 59 (38-126) U/L Troponin I <0.012 (0.000-0.034) ng/mL Total Protein 6.8 (6.3-8.2) g/dL Albumin 3.9 (3.5-5.0) g/dL Urine Color Urine Appearance (Clear) Urine pH (5.0-8.0) Ur Specific Rodney (1.001-1.035) Urine Protein (Negative) Urine Glucose (UA) (Negative) Urine Ketones (Negative) Urine Blood (Negative) Urine Nitrite (Negative) Urine Bilirubin (Negative) Urine Urobilinogen (<2.0) mg/dL Ur Leukocyte Esterase (Negative) Urine WBC (0-5) /hpf Ur Squamous Epith Cells (0-4) /hpf Urine Bacteria (None) /hpf Urine Mucus (None) /hpf Urine HCG, Qual (Not Detectd) Coronavirus (PCR) Not Detected (Not Detectd) Disposition Clinical Impression: Ovarian neoplasm, Ascites, Abdominal pain Disposition: ADMITTED IP TO THIS [facility] Condition: Stable Is patient prescribed a controlled substance at d/c from ED?: No Referrals: None,Stated [Primary Care Provider] - 1-2 days Time of Disposition: 09:21 Decision to Admit Reason: Admit from EC Decision Date: 12/20/20 Decision Time: 09:21
[2020-12-20 06:32] LABS: Appearance,Urine Cloudy (Clear); Bacteria,Urine Rare /hpf; Bilirubin,Urine Negative (Negative); Blood,Urine Negative (Negative); Color,Urine Yellow; Glucose,Urine (UA) Negative (Negative); Ketones,Urine 1+ (Negative); Leukocyte Esterase,Urine Negative (Negative); Mucus,Urine Many /hpf; Nitrite,Urine Negative (Negative); Protein,Urine 1+ (Negative); Specific Gravity,Urine 1.037 (1.001-1.035); Squamous Epithelial Cell,Urine 3 /hpf (0-4); WBC,Urine 2 /hpf (0-5)
--- NOTE | 2020-12-20 06:35 | XR ---
EXAMINATION TYPE: XR chest 1V DATE OF EXAM: 12/20/2020 COMPARISON: NONE HISTORY: Syncope and weakness. TECHNIQUE: Single AP portable frontal upright view of the chest is obtained. FINDINGS: There is no suspicious focal air space opacity, pleural effusion, or pneumothorax seen. T he cardiac silhouette size is within normal limits. The osseous structures are intact. IMPRESSION: No acute process.
[2020-12-20 06:36] LABS: ALT 18 U/L (4-34); AST 30 U/L (14-36); African American GFR (CKD) >90 (>60 ml/min/1.73 sqM); Albumin 3.9 g/dL (3.5-5.0); Alkaline Phosphatase 59 U/L (38-126); Anion Gap 10 mmol/L; Blood Urea Nitrogen 23 mg/dL (7-17); Calcium 9.5 mg/dL (8.4-10.2); Carbon Dioxide 20 mmol/L (22-30); Chloride 103 mmol/L (98-107); Glucose 184 mg/dL (74-99); Non-African American GFR(CKD) >90 (>60 ml/min/1.73 sqM); Potassium 4.8 mmol/L (3.5-5.1); Sodium 133 mmol/L (137-145); Total Bilirubin 0.6 mg/dL (0.2-1.3); Total Protein 6.8 g/dL (6.3-8.2)
--- NOTE | 2020-12-20 08:07 | US ---
EXAMINATION TYPE: US transvaginal DATE OF EXAM: 12/20/2020 COMPARISON: Same day CT. CLINICAL HISTORY: lower abdominal pain. Generalized pelvic pain TECHNIQUE: Transvaginal (TV). Date of LMP: 11/27/2020, EXAM MEASUREMENTS: Uterus: 8.8 x 4.4 x 3.9 cm Endometrial Stripe: 0.6 cm Possible Right Ovary: 6.2 x 4.9 x 4.6 cm 1. Uterus: Anteverted wnl 2. Endometrium: wnl 3. Right Ovary: possible right ovary seen, unable to see normal ovarian tissue. Appears enlarged an d heterogenous. 4. Left Ovary: Obscured by overlying bowel gas Spectral, color and waveform doppler imaging shows good arterial and venous flow within the right o vary; 5. Bilateral Adnexa: Free fluid seen in bilateral adnexa 6. Posterior cul-de-sac: Free fluid Heterogeneous uterus. No suspicious endometrial stripe thickening. Moderate amount of free fluid in t he pelvic cul-de-sac, findings correlate with CT where there is more prominent fluid. Fluid not compl etely anechoic. In the right adnexa there is confluent solid mass correlating with heterogeneous tissue superior to t he uterus on CT. Normal ovaries cannot be identified. IMPRESSION: Moderate amount of nonsimple free fluid in the pelvis when correlating ultrasound with CT . Large lobulated solid pelvic mass presumed of ovarian etiology worrisome for ovarian neoplasm. Advi se gynecology oncology referral and lab workup for further evaluation.
[2020-12-20] MEDS ORDERED: MORPHINE SULFATE 2 MG/ML SYRINGE IVP STA (08:12)
[2020-12-20] MEDS ORDERED: ONDANSETRON 4 MG/2 ML VIAL IVP STA (08:12)
[2020-12-20] MEDS: SODIUM CHLORIDE 0.9% 1,000 ML IV SCH ×2 (08:16→20:32)
--- NOTE | 2020-12-20 08:38 | CT ---
EXAMINATION TYPE: CT abdomen pelvis w con DATE OF EXAM: 12/20/2020 HISTORY: Lower abdominal pain CT DLP: 678.5mGycm Automated Exposure Control for Dose Reduction was Utilized. CONTRAST: CT scan of the abdomen and pelvis is performed without oral but with IV Contrast, patient injected wi th 100 ml mL of Isovue 300. COMPARISON: Same day pelvic ultrasound FINDINGS: LUNG BASES: No significant abnormality is appreciated. LIVER/GB: No significant abnormality is appreciated. PANCREAS: No significant abnormality is seen. SPLEEN: No significant abnormality is seen. ADRENALS: No significant abnormality is seen. KIDNEYS: No significant abnormality is seen. BOWEL: No suspicious small or large bowel dilatation. Difficulty identifying normal or abnormal appe ndix. UTERUS/ADNEXA: Anteverted uterus. Moderate amount of free fluid in the pelvis has intra-abdominal ext ension. Small to moderate amount of free fluid in the abdomen greatest in the right paracolic gutter. Fluid surrounds liver and spleen. Fluid slightly greater density than simple fluid with Houns[place] u nits between 36 and 38 noted. Superior to the uterus there is heterogeneous lobulated slightly hyperd ense mass measuring roughly 10 x 10 cm axial image 65 by roughly 9 to 10 cm craniocaudal dimension co rresponding to the ill-defined solid mass on ultrasound. Bilateral normal ovaries not identified. Sma ll focus of calcification right upper pelvic peritoneal fluid dependently axial image 55. NODES: No greater than 1cm abdominal or pelvic lymph nodes are appreciated. OSSEOUS STRUCTURES: No significant abnormality is seen. OTHER: No significant additional abnormality is seen. IMPRESSION: Small to moderate amount of abdominal and pelvic nonsimple ascites. Roughly 10 cm lobulat ed solid pelvic mass presumed of ovarian origin. Findings worrisome for ovarian neoplasm. Advise operations professional ecology oncology referral and lab workup for further evaluation.
[2020-12-20] MEDS ORDERED: NALOXONE 0.4 MG/ML 1 ML VIAL IV PRN (08:48)
[2020-12-20] MEDS ORDERED: LORazepam 2 MG/ML INJ IV PRN (08:48)
[2020-12-20] MEDS: HYDROmorphone 0.5 MG/0.5 ML SYRINGE IVP PRN ×2 (13:51→22:33)
--- NOTE | 2020-12-20 22:41 | P.HPIM ---
History of Present Illness H&P Date: 12/20/20 Chief Complaint: Abdominal pain Patient is a 30-year-old female with a known history of migraine headaches, family history of breast cancer, prior history of smoking presents to ER with complaints of abdominal pain. Patient states that she has been having diffuse abdominal pain radiating between her shoulder blades.. Patient states that she woke up in the evening yesterday and began having diarrhea and dry heaving. Patient tried to get out of bed and had 3 syncopal episodes prior to diarrhea. Patient felt very dizzy. No complaints of chest pain. No fever no chills. No hematemesis or melena. No prior history of coronary disease. Patient denies any unintentional recent weight loss. No loss of appetite. No recent travel. Chest x-ray showed no acute process. Transvaginal ultrasound showed moderate amount of non simple free fluid in the pelvis when correlating ultrasound with CT. Large lobulated solid pelvic mass radiograph awaiting etiology worrisome for ovarian neoplasm. CT of the abdomen pelvis showed small to moderate amount of abdominal and pelvic nonsimple ascites. 10 cm lobulated solid pelvic mass presumed of ovarian origin. EKG showed a sinus tachycardia Review of Systems Constitutional: Patient denies any fever or chills . No generalized weakness or weight loss. Abdomen:Patient does complain of abdominal pain and dry heaves and episode of diarrhea at home.. Cardiovascular: Patient denies any chest pain or short of breath no palpitations. Respiratory: patient denied any cough or sputum production. No shortness of breath Neurologic: Patient denied any numbness or tingling headache. Musculoskeletal: Patient denies any complaints of joint swelling or deformity. Skin: Negative Psychiatric: Negative Endocrine: No heat or cold intolerance. No recent weight gain. Genitourinary: No dysuria or hematuria. All other 14 point ROS negative except the above Past Medical History Past Medical History: No Reported History Additional Past Medical History / Comment(s): migraines History of Any Multi-Drug Resistant Organisms: None Reported Past Surgical History: No Surgical Hx Reported Past Anesthesia/Blood Transfusion Reactions: No Reported Reaction Past Psychological History: No Psychological Hx Reported Smoking Status: Former smoker Past Alcohol Use History: None Reported Past Drug Use History: None Reported - Past Family History Mother Family Medical History: Cancer Additional Family Medical History / Comment(s): Breast Father Additional Family Medical History / Comment(s): alcholic Medications and Allergies Home Medications Medication Instructions Recorded Confirmed Type No Known Home Medications 12/20/20 12/20/20 History Allergies Allergy/AdvReac Type Severity Reaction Status Date / Time Sulfa (Sulfonamide Allergy Intermediate Rash/Hives Verified 12/20/20 10:27 Antibiotics) Physical Exam Vitals: Vital Signs Temp Pulse Pulse Pulse Resp BP Pulse Ox 12/20/20 10:56 104 H 110 H 18 12/20/20 09:58 98.0 F 110 H 18 129/99 99 12/20/20 07:24 92 18 109/72 98 12/20/20 05:44 97.6 F 116 H 19 101/73 100 Intake and Output 12/19/20 12/20/20 12/20/20 22:59 06:59 14:59 Other: Voiding Method Toilet # Voids 1 Weight 61.235 kg 63.5 kg PHYSICAL EXAMINATION: Patient is lying in the bed comfortably, no acute distress, awake alert and oriented.. HEENT: Normocephalic. Neck is supple. Pupils reactive. Nostrils clear. Oral cavity is moist. Ears reveal no drainage. Neck reveals no JVD, carotid bruits, or thyromegaly. CHEST EXAMINATION: Trachea is central. Symmetrical expansion. Lung barraza clear to auscultation and percussion. CARDIAC: Normal S1, S2 with no gallops. No murmurs ABDOMEN: Soft. Mild lower abdominal tenderness.Bowel sounds normal. No organomegaly. No abdominal bruits. Extremities: reveal no edema. No clubbing or cyanosis Neurologically awake, alert, oriented x3 with well-coordinated movements. No focal deficits noted Skin: No rash or skin lesions. Psychiatric: Coperative. Nonsuicidal Musculoskeletal: No joint swelling or deformity. Normal range of motion. Results CBC & Chem 7: 12/20/20 06:12 12/20/20 06:12 Labs: Abnormal Lab Results - Last 24 Hours (Table) 12/20/20 12/20/20 12/20/20 Range/Units 06:12 06:12 06:12 WBC 19.2 H (3.8-10.6) k/uL Neutrophils # 17.7 H (1.3-7.7) k/uL Sodium 133 L (137-145) mmol/L Carbon Dioxide 20 L (22-30) mmol/L BUN 23 H (7-17) mg/dL Glucose 184 H (74-99) mg/dL Urine Appearance Cloudy H (Clear) Ur Specific [place] 1.037 H (1.001-1.035) Urine Protein 1+ H (Negative) Urine Ketones 1+ H (Negative) Urine Bacteria Rare H (None) /hpf Urine Mucus Many H (None) /hpf Thrombosis Risk Factor Assmnt - DVT/VTE Prophylaxis DVT/VTE Prophylaxis: Pharmacologic Prophylaxis ordered - Choose All That Apply Each Factor Represents 1 point: Oral contraceptives or hormone replacement therapy Other Risk Factors: No Other congenital or acquired thrombophilia - If yes, enter type in comment: No Thrombosis Risk Factor Assessment Total Risk Factor Score: 1 Thrombosis Risk Factor Assessment Level: Low Risk Assessment and Plan Assessment: Solid pelvic mass presumed ovarian origin/malignancy 10 cm in size Abdominal pain and near syncopal episode Sinus tachycardia Leukocytosis likely reactive. Chest x-ray and UA negative. Hypovolemic hyponatremia DVT prophylaxis with heparin subcu Plan: Patient will be continued on IV hydration and pain management with Dilaudid. Oncology and POCKET SETTER service was consulted. Patient will need tissue biopsy and possible transfer to another hospital facility with POCKET SETTER oncology consult. Case management is following. Pending transfer depending on bed availability. Time with Patient: Greater than 30
[2020-12-21 05:03] LABS: Basophils % (A) 0 %; Eosinophils # (A) 0.2 k/uL (0-0.7); Eosinophils % (A) 3 %; HCT 22.9 % (34.0-46.0); Lymphocytes # (A) 2.6 k/uL (1.0-4.8); Lymphocytes % (A) 30 %; MCH 30.5 pg (25.0-35.0); MCHC 34.7 g/dL (31.0-37.0); MCV 87.9 fL (80.0-100.0); Mean Platelet Volume 8.6; Monocytes # (A) 0.4 k/uL (0-1.0); Monocytes % (A) 4 %; Neutrophils # (A) 5.3 k/uL (1.3-7.7); Platelet Count 207 k/uL (150-450); RDW 12.6 % (11.5-15.5); WBC 8.5 k/uL (3.8-10.6)
[2020-12-21 05:25] LABS: African American GFR (CKD) >90 (>60 ml/min/1.73 sqM); Anion Gap 3 mmol/L; Blood Urea Nitrogen 9 mg/dL (7-17); Carbon Dioxide 26 mmol/L (22-30); Chloride 107 mmol/L (98-107); Glucose 86 mg/dL (74-99); Non-African American GFR(CKD) >90 (>60 ml/min/1.73 sqM); Potassium 4.2 mmol/L (3.5-5.1); Sodium 136 mmol/L (137-145)
[2020-12-21] MEDS: SODIUM CHLORIDE 0.9% 1,000 ML IV SCH ×3 (05:50→23:43)
[2020-12-21 05:58] LABS: HGB 7.9 gm/dL (11.4-16.0)
--- NOTE | 2020-12-21 07:47 | P.CONS ---
History of Present Illness - Reason for Consult Consult date: 12/21/20 Ovarian mass Requesting physician: Shona Bradley - Chief Complaint Abdominal pain - History of Present Illness Ms. Dubose is a very pleasant 30 yo female with a history of migraine headaches as well as family history of breast cancer, who is here for abdominal pain radiating to the shoulder She woek up with sycopal episodes as she tried to get out of bed [employer], and subsequently had profuse diarrhea, abdominal pain, and dry heaves. She presented to the hospital where CXR was negative, CT AP with large 10cm heterogenous and hyperdense mass presumed to be ovarian in nature as ovaries not seen. She was admitted for further care and work up. We were consulted regarding ovarian mass. She has a history of smoking, quit 5 yrs ago when she got with her son. Social alcohol use, no drugs. Family history of breast cancer in her mother, what sounds like DCIS found on routine screening mammogram, in early-mid 40's, BRCA negative, and paternal GM who was cured from her breast cancer (unknown age or status) and passed many years later from dementia in her 80's. Maternal uncle with some type of cancer that pt does not know. Past Medical History Past Medical History: No Reported History Additional Past Medical History / Comment(s): migraines History of Any Multi-Drug Resistant Organisms: None Reported Past Surgical History: No Surgical Hx Reported Past Anesthesia/Blood Transfusion Reactions: No Reported Reaction Past Psychological History: No Psychological Hx Reported Smoking Status: Former smoker Past Alcohol Use History: None Reported Past Drug Use History: None Reported - Past Family History Mother Family Medical History: Cancer Additional Family Medical History / Comment(s): Breast Father Additional Family Medical History / Comment(s): alcholic Medications and Allergies Home Medications Medication Instructions Recorded Confirmed Type No Known Home Medications 12/20/20 12/20/20 History Allergies Allergy/AdvReac Type Severity Reaction Status Date / Time Sulfa (Sulfonamide Allergy Intermediate Rash/Hives Verified 12/20/20 10:27 Antibiotics) Physical Exam Vitals: Vital Signs Temp Pulse Pulse Pulse Resp BP BP 12/21/20 02:22 98 F 102 H 16 102/56 12/20/20 20:59 98 F 99 18 111/76 12/20/20 14:10 98.4 F 117 H 18 94/64 12/20/20 10:56 104 H 110 H 18 12/20/20 10:10 98.5 F 104 H 110 H 18 107/69 12/20/20 09:58 98.0 F 110 H 18 129/99 12/20/20 07:24 92 18 109/72 12/20/20 05:44 97.6 F 116 H 19 101/73 Pulse Ox 12/21/20 02:22 98 12/20/20 20:59 99 12/20/20 14:10 97 12/20/20 10:56 12/20/20 10:10 100 12/20/20 09:58 99 12/20/20 07:24 98 12/20/20 05:44 100 Intake and Output 12/20/20 12/20/20 12/21/20 14:59 22:59 06:59 Intake Total 240 Balance 240 Intake: Oral 240 Other: Voiding Method Toilet # Voids 1 2 Weight 63.5 kg Gen: NAD HEENT: Mucosa moist Lungs: No respiratory distress Heart: Regular rate Abd: Non distended MSK: No obvious deformity Neuro: Alert and oriented x3 Skin: No jaundice Psych: Appropriate affect Results CBC & Chem 7: 12/21/20 04:35 12/21/20 04:35 Labs: Abnormal Lab Results - Last 24 Hours (Table) 12/20/20 12/20/20 12/20/20 Range/Units 06:12 06:12 06:12 WBC 19.2 H (3.8-10.6) k/uL Neutrophils # 17.7 H (1.3-7.7) k/uL Sodium 133 L (137-145) mmol/L Carbon Dioxide 20 L (22-30) mmol/L BUN 23 H (7-17) mg/dL Glucose 184 H (74-99) mg/dL Urine Appearance Cloudy H (Clear) Ur Specific [place] 1.037 H (1.001-1.035) Urine Protein 1+ H (Negative) Urine Ketones 1+ H (Negative) Urine Bacteria Rare H (None) /hpf Urine Mucus Many H (None) /hpf Chest x-ray: report reviewed CT scan - abdomen: report reviewed CT scan - pelvis: report reviewed Assessment and Plan Assessment: 1. Ovarian mass 2. Abdominal pain 3. Family history of cancer Plan: Ms. Dubose is a very pleasant 30 yo female with no significant PMH who is here for acute onset abdominal pain, diarrhea, and syncopal episodes. Work up with CXR negative, CT AP with 10cm abdominal mass, presumed to be ovarian as ovaries not identified. Has family history of breast cancer in mother (DCIS in early- mid 40's, negative BRCA testing and paternal GM with breast cancer at unknown age, passed due to dementia years later in her 80's). Will obtain CA [address] chest to complete staging for presumed malignancy. Will need tissue diagnosis. Agree with transfer to tertiary center for top ironer/onc care. If pt transferred, can follow up in clinic after discharge. Will continue to follow pt with you while she is here. Discussed with pt and she is agreeable to the plan. All questions answered.
[2020-12-21 08:03] VITALS: RESP 18
[2020-12-21] MEDS ORDERED: BUTALB/APAP/CAFF 50-325-40MG TAB PO STA (08:22)
[2020-12-21] MEDS ORDERED: HEPARIN SODIUM,PORCINE/PF 5,000 UNIT/0.5 ML SYRINGE SQ SCH (09:00)
[2020-12-21 09:15] LABS: Basophils % (A) 0 %; Eosinophils # (A) 0.2 k/uL (0-0.7); Eosinophils % (A) 2 %; HCT 25.5 % (34.0-46.0); HGB 8.2 gm/dL (11.4-16.0); Lymphocytes # (A) 1.5 k/uL (1.0-4.8); Lymphocytes % (A) 17 %; MCH 28.8 pg (25.0-35.0); MCHC 32.1 g/dL (31.0-37.0); MCV 89.6 fL (80.0-100.0); Mean Platelet Volume 8.7; Monocytes # (A) 0.3 k/uL (0-1.0); Monocytes % (A) 4 %; Neutrophils # (A) 6.8 k/uL (1.3-7.7); Neutrophils % (A) 77 %; Platelet Count 222 k/uL (150-450); RBC 2.84 m/uL (3.80-5.40); RDW 13.1 % (11.5-15.5); WBC 8.8 k/uL (3.8-10.6)
--- NOTE | 2020-12-21 10:51 | CT ---
EXAMINATION TYPE: CT angio chest DATE OF EXAM: 12/21/2020 10:41 AM COMPARISON: HISTORY: Rule out PE, Elevated D-dimer CT DLP: 182.9 mGycm Automated exposure control for dose reduction was used. CONTRAST: CTA scan of the thorax is performed with IV Contrast, patient injected with 100 mL of Isovue 370, pul monary embolism protocol. MIP images are created and reviewed. FINDINGS: LUNGS: The lungs are grossly clear, there is no concerning parenchymal mass or nodule identified. T here is no pleural effusion or pneumothorax seen. The tracheobronchial tree is patent. MEDIASTINUM: There is most dense contrast in SVC extending into right atrium. There is some contrast opacification of the thoracic aorta without aneurysm or dissection. There is essentially no contrast in the pulmonary arteries making the exam nondiagnostic for pulmonary embolism. There are no greater than 1 cm hilar or mediastinal lymph nodes. No cardiomegaly or pericardial effusion is seen. OTHER: Partial visualization of known intra-abdominal ascites. IMPRESSION: Nondiagnostic for acute pulmonary embolism. No suspicious acute pulmonary process.
[2020-12-21 16:51] LABS: Reticulocyte % 2.9 % (0.5-2.0)
[2020-12-21 17:24] LABS: Partial Thromboplastin Time 21.9 sec (22.0-30.0)
[2020-12-21] MEDS ORDERED: RX INFO: IV CONTRAST WAS GIVEN 1 EACH MISC MISCELLANE PRN (19:16)
[2020-12-21] MEDS: HYDROmorphone 0.5 MG/0.5 ML SYRINGE IVP PRN (19:41)
--- NOTE | 2020-12-21 22:46 | P.PN ---
Subjective Progress Note Date: 12/21/20 Principal diagnosis: Abdominal pain and syncopal episode Pelvic mass Patient is a 30-year-old female with a known history of migraine headaches, family history of breast cancer, prior history of smoking presents to ER with complaints of abdominal pain. Patient states that she has been having diffuse abdominal pain radiating between her shoulder blades.. Patient states that she woke up in the evening yesterday and began having diarrhea and dry heaving. Patient tried to get out of bed and had 3 syncopal episodes prior to diarrhea. Patient felt very dizzy. No complaints of chest pain. No fever no chills. No hematemesis or melena. No prior history of coronary disease. Patient denies any unintentional recent weight loss. No loss of appetite. No recent travel. Chest x-ray showed no acute process. Transvaginal ultrasound showed moderate amount of non simple free fluid in the pelvis when correlating ultrasound with CT. Large lobulated solid pelvic mass radiograph awaiting etiology worrisome for ovarian neoplasm. CT of the abdomen pelvis showed small to moderate amount of abdominal and pelvic nonsimple ascites. 10 cm lobulated solid pelvic mass presumed of ovarian origin. EKG showed a sinus tachycardia 12/21/2020 Patient is currently resting in the bed comfortably. Patient was tachycardic this morning and due to complaints of dizziness and syncopal episode at home. D-dimer was ordered. D-dimer is elevated and CT angiogram showed no evidence of PE. Patient was seen by oncology and will order tumor markers. Currently with telemetry monitoring. I did discuss with admitting physician at [facility] who accepted the patient to be transferred with telemetry bed. Currently awaiting for transfer. Discussed with the patient and his family at bedside in detail. Current medications reviewed. Objective - Vital Signs Vital signs: Vital Signs Temp 98.1 F 12/21/20 12:27 Pulse 96 12/21/20 12:27 Resp 18 12/21/20 12:27 BP 109/75 12/21/20 12:27 Pulse Ox 100 12/21/20 12:27 Intake & Output 12/20/20 12/21/20 12/21/20 18:59 06:59 18:59 Intake Total 240 1000 Balance 240 1000 Weight 63.5 kg Intake: Intake, IV Titration 1000 Amount Sodium Chloride 0.9% 1, 1000 000 ml @ 100 mls/hr IV . Q10H [facility] Rx#:[id number] Oral 240 Other: Voiding Method Toilet # Voids 1 1 1 - Exam PHYSICAL EXAMINATION: Patient is lying in the bed comfortably, no acute distress, awake alert and oriented.. HEENT: Normocephalic. Neck is supple. Pupils reactive. Nostrils clear. Oral cavity is moist. Ears reveal no drainage. Neck reveals no JVD, carotid bruits, or thyromegaly. CHEST EXAMINATION: Trachea is central. Symmetrical expansion. Lung barraza clear to auscultation and percussion. CARDIAC: Normal S1, S2 with no gallops. No murmurs ABDOMEN: Soft. Mild lower abdominal tenderness.Bowel sounds normal. No organomegaly. No abdominal bruits. Extremities: reveal no edema. No clubbing or cyanosis Neurologically awake, alert, oriented x3 with well-coordinated movements. No focal deficits noted Skin: No rash or skin lesions. Psychiatric: Coperative. Nonsuicidal Musculoskeletal: No joint swelling or deformity. Normal range of motion. - Labs CBC & Chem 7: 12/21/20 08:43 12/21/20 04:35 Labs: Abnormal Lab Results - Last 24 Hours (Table) 12/21/20 12/21/20 12/21/20 Range/Units 04:35 04:35 08:43 RBC 2.60 L 2.84 L (3.80-5.40) m/uL Hgb 7.9 L D 8.2 L (11.4-16.0) gm/dL Hct 22.9 L 25.5 L (34.0-46.0) % D-Dimer (<0.60) mg/L FEU Sodium 136 L (137-145) mmol/L Calcium 8.0 L (8.4-10.2) mg/dL 12/21/20 Range/Units 08:43 RBC (3.80-5.40) m/uL Hgb (11.4-16.0) gm/dL Hct (34.0-46.0) % D-Dimer 4.41 H (<0.60) mg/L FEU Sodium (137-145) mmol/L Calcium (8.4-10.2) mg/dL Assessment and Plan Assessment: Solid pelvic mass presumed ovarian origin/malignancy 10 cm in size Abdominal pain and near syncopal episode Elevated D-dimer level. CTA negative for pulmonary embolism. Sinus tachycardia Leukocytosis likely reactive. Chest x-ray and UA negative. Hypovolemic hyponatremia DVT prophylaxis with heparin subcu Plan: Patient will be continued on IV hydration and pain management with Dilaudid. Oncology and PILING SETTER service has seen the pt. Patient will need tissue biopsy and possible transfer to another hospital facility with PILING SETTER oncology consult. Case management is following. Pending transfer depending on bed availability. Time with Patient: Greater than 30
[2020-12-22 03:25] LABS: Prothrombin Time 10.7 sec (9.0-12.0)
[2020-12-22 05:34] VITALS: BP 120/79; TEMP 98.3
[2020-12-22 06:45] LABS: Basophils % (A) 0 %; Eosinophils # (A) 0.2 k/uL (0-0.7); Eosinophils % (A) 3 %; HCT 24.3 % (34.0-46.0); HGB 8.3 gm/dL (11.4-16.0); Lymphocytes # (A) 1.8 k/uL (1.0-4.8); Lymphocytes % (A) 23 %; MCH 29.9 pg (25.0-35.0); MCHC 33.9 g/dL (31.0-37.0); MCV 88.2 fL (80.0-100.0); Mean Platelet Volume 8.7; Monocytes # (A) 0.3 k/uL (0-1.0); Monocytes % (A) 4 %; Neutrophils # (A) 5.2 k/uL (1.3-7.7); Neutrophils % (A) 69 %; Platelet Count 231 k/uL (150-450); RBC 2.76 m/uL (3.80-5.40); RDW 12.6 % (11.5-15.5); WBC 7.6 k/uL (3.8-10.6)
[2020-12-22] MEDS: SODIUM CHLORIDE 0.9% 1,000 ML IV SCH (07:09)
[2020-12-22 08:42] VITALS: PULSE 111
[2020-12-22 09:34] LABS: ALT 11 U/L (4-34); AST 21 U/L (14-36); African American GFR (CKD) >90 (>60 ml/min/1.73 sqM); Albumin 3.3 g/dL (3.5-5.0); Albumin/Globulin Ratio 1.3; Alkaline Phosphatase 61 U/L (38-126); Anion Gap 4 mmol/L; Blood Urea Nitrogen 3 mg/dL (7-17); Calcium 8.4 mg/dL (8.4-10.2); Carbon Dioxide 28 mmol/L (22-30); Chloride 105 mmol/L (98-107); Globulin 2.6 g/dL; Glucose 87 mg/dL (74-99); Non-African American GFR(CKD) >90 (>60 ml/min/1.73 sqM); Potassium 4.1 mmol/L (3.5-5.1); Sodium 137 mmol/L (137-145); Total Bilirubin 0.5 mg/dL (0.2-1.3); Total Protein 5.9 g/dL (6.3-8.2)
[2020-12-22 11:03] LABS: Cancer Antigen 125 30.4 U/mL (0.0-30.1)
[2020-12-22 11:11] LABS: Cancer Antigen 125 23.1 U/mL (0.0-30.1)
[2020-12-22 11:12] LABS: % Iron Saturation 13.77 (12.00-45.00); Ferritin 16.6 ng/mL (10.0-291.0); Folate, Serum 14.1 ng/mL
== END 2020-12-22 08:53 | disposition short-term general hospital (02) | DRG 760 ==
LOC: EC 05:44 → 6PED 08:43 → 5NMEDONC 12-21 14:30
PROVIDERS: ADMIT Internal Medicine; ATTEND Internal Medicine
DX: N83.9 Noninflammatory disorder of ovary, fallopian tube and broad ligament, unspecified (principal); R18.8 Other ascites; E87.1 Hypo-osmolality and hyponatremia; E86.1 Hypovolemia; Z20.822 Contact with and (suspected) exposure to COVID-19; G43.909 Migraine, unspecified, not intractable, without status migrainosus; D72.829 Elevated white blood cell count, unspecified; R79.1 Abnormal coagulation profile; Z87.891 Personal history of nicotine dependence; Z88.2 Allergy status to sulfonamides; Z81.1 Family history of alcohol abuse and dependence; Z82.0 Family history of epilepsy and other diseases of the nervous system; Z80.3 Family history of malignant neoplasm of breast; Z80.9 Family history of malignant neoplasm, unspecified
CPT/HCPCS: 36415; 71045; 71275; 74177; 76830; 80048; 80053; 81001; 81025; 82607; 82728; 82746; 83540; 83550; 83615; 83921; 84484; 85025; 85045; 85379; 85610; 85730; 86304; 87635; 93005; 93976; 96361; 96374; 96375; 99285

== ENCOUNTER 2021-10-27 15:48 | Outpatient (CLI) | payer OTHER ==
[2021-10-27 17:21] VITALS: BP 119/75; PULSE 92; RESP 16; TEMP 97.5
--- NOTE | 2021-10-27 20:46 | P.MSEPDOC ---
Presenting Problems - Arrival Data Date of Arrival on Unit: 10/27/21 Time of Arrival on Unit: 15:48 Mode of Transport: Ambulatory - Complaint OB-Reason for Admission/Chief Complaint: Decreased Movement Comment: pt states she has felt movement from baby today but not as frequently as normal Medical History - Information : 3 Para: 2 Term: 2 : 0 Abortions: Spontaneous or Elective: 0 Number of Living Children: 2 - Gestational Age Gestational Age by MARIO ALBERTO (wks/days): 32 Weeks and 5 Days - History Complications: GDM Review of Systems - Review of Systems Constitutional: No problems Breast: No problems ENT: No problems Cardiovascular: No problems Respiratory: No problems Gastrointestinal: No problems Genitourinary: No problems Musculoskeletal: No problems Neurological: No problems Skin: No problems Vital Signs - Temperature Temperature: 97.5 F Temperature Source: Oral - Pulse Pulse Oximetery Pulse Rate: 92 Pulse Assessment Method: Pulse Oximetry - Respirations Respiratory Rate: 16 Oxygen Delivery Method: Room Air O2 Sat by Pulse Oximetry: 100 - Blood Pressure Right Arm Blood Pressure: 119/75 Blood Pressure Mean: 89 Blood Pressure Source: Automatic Cuff Medical Screen Scoring - Assessment - Baby A Baseline FHR: 120 Heart Rate - NICHD Category: Category I (Normal) Physician Notification - Physician Notified Physician Notified Date: 10/27/21 Physician Notified Time: 17:11 Physician: Heike Benavides Order Received: Yes (d/c home) Maternal Triage Index - Maternal Triage Index Presenting for scheduled procedure w/no complaint: No - Stat/Priority 1 Stat Priority 1: No - Urgent/Priority 2 Urgent Priority 2: No - Prompt/Priority 3 Prompt Priority 3: No - Non-Urgent/Priority 4 Non-Urgent Priority 4: Yes Criteria Met for Priority 4: decreased movement, reactive NST Disposition - Disposition OB Disposition: Discharge to home Discharge Date: 10/27/21 Discharge Time: 17:15 I agree with the RN Medical Screening Exam: Yes Case reviewed; plan agreed upon as documented in EMR&OBIX.: Yes Diagnosis: DECREASED MOVEMENTS, THIRD TRIMESTER, UNSP
== END 2021-10-27 17:15 | disposition home or self-care (01) ==
LOC: FBPOP 15:48
PROVIDERS: ATTEND Obstetrics & Gynecology
DX: O36.8130 Decreased fetal movements, third trimester, not applicable or unspecified (principal); Z3A.32 32 weeks gestation of pregnancy; Z88.2 Allergy status to sulfonamides; Z87.891 Personal history of nicotine dependence
CPT/HCPCS: 59025; 99213

== ENCOUNTER 2021-11-24 11:37 | Outpatient (CLI) | payer OTHER ==
[2021-11-24] MEDS ORDERED: BETAMET ACET-BETAMETH SOD PHOS 6 MG/ML MDV IM SCH (12:00)
[2021-11-24 13:34] VITALS: BP 114/68; PULSE 79; RESP 15; TEMP 96.3
--- NOTE | 2021-11-25 20:57 | P.MSEPDOC ---
Presenting Problems - Arrival Data Date of Arrival on Unit: 11/24/21 Time of Arrival on Unit: 11:37 Mode of Transport: Ambulatory - Complaint OB-Reason for Admission/Chief Complaint: NST, Celestone Injection Medical History - Information : 3 Para: 2 Term: 2 : 0 Abortions: Spontaneous or Elective: 0 Number of Living Children: 2 - Gestational Age Gestational Age by MARIO ALBERTO (wks/days): 36 Weeks and 5 Days - History Complications: GDM, Other Comment: see ing MFM for gest DM and abnormal umbilical vein Review of Systems - Review of Systems Constitutional: No problems Breast: No problems ENT: No problems Cardiovascular: No problems Respiratory: No problems Gastrointestinal: No problems Genitourinary: No problems Musculoskeletal: No problems Neurological: No problems Skin: No problems Vital Signs - Temperature Temperature: 96.3 F Temperature Source: Temporal Artery Scan - Pulse Pulse Oximetery Pulse Rate: 79 Pulse Assessment Method: Pulse Oximetry - Respirations Respiratory Rate: 15 Oxygen Delivery Method: Room Air O2 Sat by Pulse Oximetry: 98 - Blood Pressure Right Arm Sitting Blood Pressure: 114/68 Blood Pressure Mean: 83 Blood Pressure Source: Automatic Cuff Medical Screen Scoring - Assessment - Baby A Baseline FHR: 130 Heart Rate - NICHD Category: Category I (Normal) NST: Reactive Maternal Triage Index - Maternal Triage Index Presenting for scheduled procedure w/no complaint: No - Stat/Priority 1 Stat Priority 1: No - Urgent/Priority 2 Urgent Priority 2: No - Prompt/Priority 3 Prompt Priority 3: No - Non-Urgent/Priority 4 Non-Urgent Priority 4: No - Scheduled/Requesting Priority 5 Scheduled/Requesting Priority 5: Yes Criteria Met for Priority 5: NST and Celestone Disposition - Disposition OB Disposition: Triage, Discharge to home, Written follow up instructions reviewed Discharge Date: 11/24/21 Discharge Time: 12:18 I agree with the RN Medical Screening Exam: Yes Case reviewed; plan agreed upon as documented in EMR&OBIX.: Yes Diagnosis: RELATED CONDITIONS, UNSPECIFIED, THIRD TRIMESTER (Umbilical vein varix)
== END 2021-11-24 12:18 | disposition home or self-care (01) ==
LOC: FBPOP 11:37
PROVIDERS: ATTEND Obstetrics & Gynecology
DX: O35.8XX0 Maternal care for other (suspected) fetal abnormality and damage, not applicable or unspecified (principal); Z3A.36 36 weeks gestation of pregnancy; Z88.2 Allergy status to sulfonamides; Z87.891 Personal history of nicotine dependence
CPT/HCPCS: 59025; 96372; J0702

== ENCOUNTER 2021-11-25 15:32 | Outpatient (CLI) | payer OTHER ==
[2021-11-25] MEDS ORDERED: BETAMET ACET-BETAMETH SOD PHOS 6 MG/ML MDV IM SCH (15:45)
[2021-11-25 16:01] VITALS: BP 119/76; PULSE 83; RESP 18; TEMP 97.5
== END 2021-11-25 16:02 | disposition home or self-care (01) ==
LOC: FBPOP 15:32
PROVIDERS: ATTEND Obstetrics & Gynecology
DX: O35.8XX0 Maternal care for other (suspected) fetal abnormality and damage, not applicable or unspecified (principal); Z3A.36 36 weeks gestation of pregnancy; Z87.891 Personal history of nicotine dependence; Z88.2 Allergy status to sulfonamides
CPT/HCPCS: 96372; J0702

== ENCOUNTER 2021-11-26 06:00 | Inpatient (IN) | payer OTHER ==
--- NOTE | 2021-11-25 20:31 | P.HPOB ---
History of Present Illness H&P Date: 11/25/21 Chief Complaint: Umbilical vein varix, gestational diabetes-diet controlled This is a 31 y.o. female, 3, para 2, with an estimated date of confinement of 12/17/2021, estimated gestational age of 37-0/7 weeks, who presents for induction of labor due to umbilical vein varix and gestational diabetes, diet-controlled. She has been following with MFM and they have advised delivery between 36 and 37 weeks due to her umbilical vein varix. She has been followed with weekly ultrasound and twice weekly NSTs. She did receive 2 doses of late steroids on 11/24 and 11/25. She does feel occasional contractions. She transferred care to [facility] at [address] Smith. labs: Hepatitis B surface antigen-neg RPR-NR Rubella-immune Blood type-A+ Antibody screen-neg HIV-NR Hemoglobin-12.9 Random glucose-95 GC/Chlamyida/Trich-neg Quad-neg 1hr. GTT-196; 3 hr. GTT-2 values high GBS-neg OB Hx: 2 vaginal deliveries at term Investigation Specialist Hx: No history of STDs Social Hx: . Works as a therapist. Review of Systems Constitutional: Denies chills, Denies fever Eyes: denies blurred vision, denies pain Ears, nose, mouth and throat: Denies headache, Denies sore throat Cardiovascular: Denies chest pain, Denies shortness of breath Respiratory: Denies cough Gastrointestinal: Reports abdominal pain (irregular contractons) Genitourinary: Reports pelvic pain, Reports Musculoskeletal: Reports low back pain Integumentary: Denies pruritus, Denies rash Neurological: Denies numbness, Denies weakness Psychiatric: Denies anxiety, Denies depression Past Medical History Additional Past Medical History / Comment(s): migraines; Gestational diabetes History of Any Multi-Drug Resistant Organisms: None Reported Additional Past Surgical History / Comment(s): Exploratory laparotomy, ovarian cystectomy Past Anesthesia/Blood Transfusion Reactions: No Reported Reaction Past Psychological History: No Psychological Hx Reported Smoking Status: Former smoker Past Alcohol Use History: None Reported Past Drug Use History: None Reported - Past Family History Mother Family Medical History: Cancer Additional Family Medical History / Comment(s): Breast Father Additional Family Medical History / Comment(s): alcholic Medications and Allergies Home Medications Medication Instructions Recorded Confirmed Type RX: Pnv 11/Iron Fum/Folic Acid/Om3 1 cap PO DAILY 10/27/21 11/25/21 History [Virt-Edwardo Dha Softgel] Allergies Allergy/AdvReac Type Severity Reaction Status Date / Time Sulfa (Sulfonamide Allergy Intermediate Rash/Hives Verified 10/27/21 16:02 Antibiotics) Exam Osteopathic Statement: *. No significant issues noted on an osteopathic structural exam other than those noted in the History and Physical/Consult. HEENT: within normal limits Heart: regular rate and rhythm Lungs: clear to auscultation bilaterally Abdomen: , non-tender heart tones: 140's by doppler Cervix: 1 cm/uneffaced/-2 Extremities: negative Diamond's Assessment and Plan (1) 37 weeks gestation of Status: Acute Code(s): Z3A.37 - 37 WEEKS GESTATION OF SNOMED Code(s): 09654341 (2) complicated by umbilical cord varix in antepartum period Status: Acute Code(s): O99.891 - OTH DISEASES AND CONDITIONS COMPLICATING SNOMED Code(s): 470168804 (3) Gestational diabetes mellitus (GDM) affecting third Status: Acute Code(s): O24.419 - GESTATIONAL DIABETES MELLITUS IN , UNSP CONTROL SNOMED Code(s): 66814174286514 Plan: Admit for oxytocin induction of labor. Expectant management. Epidural anesthesia if desired.
[2021-11-26] MEDS ORDERED: CARBOPROST TROMETHAMINE 250 MCG/ML 1 ML AMP IM PRN (06:27)
[2021-11-26] MEDS ORDERED: TERBUTALINE 1 MG/ML VIAL SQ PRN (06:27)
[2021-11-26] MEDS ORDERED: LIDOCAINE 1% (10MG/ML) FOR IV START INTRADERMA PRN (06:27)
[2021-11-26] MEDS ORDERED: METHYLERGONOVINE 0.2 MG/ML 1 ML AMP IM PRN (06:27)
[2021-11-26] MEDS ORDERED: OXYTOCIN 30 UNITS/500 ML NS 30 UNIT in SALINE 1 500ML.BAG IV SCH ×2 (06:27→14:45)
[2021-11-26] MEDS ORDERED: OXYTOCIN 10 UNIT/ML 1 ML VIAL IM PRN (06:27)
[2021-11-26] MEDS ORDERED: LIDOCAINE 1% (PF) 10 MG/ML (30 ML SDV) SQ PRN (06:27)
[2021-11-26] MEDS: LACTATED RINGERS 1,000 ML IV SCH ×3 (06:41→13:26)
[2021-11-26 06:47] LABS: Glucose,Whole Blood 111 mg/dL (75-99)
[2021-11-26 06:48] LABS: Basophils % (A) 0 %; Eosinophils % (A) 0 %; HCT 34.8 % (34.0-46.0); HGB 11.5 gm/dL (11.4-16.0); Hypochromasia Moderate; Lymphocytes % (A) 10 %; MCH 28.3 pg (25.0-35.0); MCV 85.7 fL (80.0-100.0); Mean Platelet Volume 10.2; Monocytes # (A) 0.3 k/uL (0-1.0); Monocytes % (A) 3 %; Neutrophils # (A) 8.7 k/uL (1.3-7.7); Neutrophils % (A) 86 %; Platelet Count 250 k/uL (150-450); Poikilocytosis Slight; RBC 4.06 m/uL (3.80-5.40); RDW 13.4 % (11.5-15.5); WBC 10.1 k/uL (3.8-10.6)
[2021-11-26] MEDS ORDERED: BUTORPHANOL 1 MG/ML 1 ML VIAL IV PRN (08:20)
[2021-11-26 09:02] LABS: Glucose,Whole Blood 95 mg/dL (75-99)
[2021-11-26 11:01] LABS: Glucose,Whole Blood 93 mg/dL (75-99)
[2021-11-26 12:52] LABS: Glucose,Whole Blood 75 mg/dL (75-99)
[2021-11-26] MEDS ORDERED: ROPIVACAINE 100 MG, fentaNYL (PF). 200 MCG in SODIUM CHLORIDE 0.9% 76 ML EPIDURAL ONE (13:33)
[2021-11-26] MEDS ORDERED: ACETAMINOPHEN TAB 325 MG TAB PO PRN (14:44)
[2021-11-26] MEDS ORDERED: ZOLPIDEM 5 MG TAB PO PRN (14:44)
[2021-11-26] MEDS ORDERED: SIMETHICONE 80 MG CHEWABLE PO PRN (14:44)
[2021-11-26] MEDS ORDERED: HYDROCORTISONE 2.5% RECTAL CREAM 30 GM TUBE RECTAL PRN (14:44)
[2021-11-26] MEDS ORDERED: LANOLIN CREAM 5 GM TUBE TOPICAL PRN (14:44)
[2021-11-26] MEDS ORDERED: BENZOCAINE/MENTHOL SPRAY 1 GM/SPRAY AEROSOL TOPICAL PRN (14:44)
[2021-11-26] MEDS ORDERED: diphenhydrAMINE 25 MG CAP PO PRN (14:44)
[2021-11-26] MEDS ORDERED: diphenhydrAMINE 50 MG CAP PO PRN (14:44)
--- NOTE | 2021-11-26 18:40 | P.PROBDLV ---
Vaginal Delivery Note - . Vaginal Delivery Note: The patient underwent oxytocin induction of labor. She had artificial rupture membranes with clear fluid noted. She did receive epidural anesthesia. Shortly after epidural, she made change from 4 cm to complete fairly rapidly. She pushed for 1 or 2 pushes and 's head came to a crown. With one further push, the infant's head delivered across the perineum followed by the anterior shoulder. Nose and mouth were bulb suctioned at the perineum. With one further push, the remainder the easily delivered and was placed on mother's abdomen. Cord was clamped and cut after cord was allowed to finish pulsating and was taken to warmer for evaluation. A viable female infant is noted with scores of 7 at 1 minute and 9 at 5 minutes and weight of 6 lbs. 1 oz. Placenta delivered shortly thereafter, intact, with a three-vessel cord. Uterus contracted well after oxytocin was given and uterine massage was carried out. Inspection of the perineum revealed no perineal lacerations. Estimated blood loss is approximately 100 mL's. Both mother and are in stable condition. Placenta will be sent to pathology due to history of umbilical vein varix.
[2021-11-26] MEDS ORDERED: SENNOSIDES-DOCUSATE SODIUM 1 EACH TAB PO SCH (20:00)
[2021-11-26] MEDS: IBUPROFEN 600 MG TAB PO PRN (23:06)
--- NOTE | 2021-11-27 07:55 | P.DS ---
Providers Date of admission: 11/26/21 06:00 Expected date of discharge: 11/27/21 Attending physician: Heike Benavides Primary care physician: Stated None - Discharge Diagnosis(es) (1) 37 weeks gestation of Current Visit: No Status: Acute (2) complicated by umbilical cord varix in antepartum period Current Visit: No Status: Acute (3) Gestational diabetes mellitus (GDM) affecting third Current Visit: No Status: Acute Hospital Course: This is a 31-year-old female 3 para 2 at 37-0/7 weeks who presented for induction of labor secondary to a umbilical vein varix and gestational diabetes diet controlled. She underwent oxytocin induction of labor and delivered vaginally a viable female infant with scores of 7 at 1 minute and 9 at 5 minutes and weight of 6 lbs. 1 oz. on 11/26/2021. Her course has been uncomplicated. Lochia has been decreasing. Her pain is well- controlled with ibuprofen. She is breast-feeding. Vital signs are stable. Abdomen is soft with fundus firm and nontender. Extremities show negative Homans. Impression is status post vaginal delivery day #1. Plan is to discharge home today. Routine instructions are given. She will be given a prescription for ibuprofen and a breast pump. She is advised to follow up in the office in 6 weeks for a check. She is advised to call the office if she has any further questions or concerns prior to her appointment time. Procedures: Oxytocin induction of labor Spontaneous vaginal delivery of a viable female infant on 11/26/2021 Patient Condition at Discharge: Stable Plan - Discharge Summary New Discharge Prescriptions: New Ibuprofen [Motrin] 600 mg PO Q6HR PRN #60 tab PRN Reason: Mild Pain (Scale 1 To 3) Continue Pnv 11/Iron Fum/Folic Acid/Om3 [Virt-Edwardo Dha Softgel] 1 cap PO DAILY Discharge Medication List Pnv 11/Iron Fum/Folic Acid/Om3 [Virt-Edwardo Dha Softgel] 1 cap PO DAILY 10/27/21 [History] Ibuprofen [Motrin] 600 mg PO Q6HR PRN #60 tab 11/27/21 [Rx] Follow up Appointment(s)/Referral(s): Heike Benavides DO [Doctor of Osteopathic Medicine] - 01/05/22 11:30 am Activity/Diet/Wound Care/Special Instructions: Instructions 1. Do not begin any exercise program for 3 weeks. 2. Do not resume sexual relations for 3 weeks or longer if uncomfortable. 3. You may take tub baths or showers at any time. 4. You may use tampons if desired after 3 weeks. 5. Keep the area of episiotomy (stitches) clean and dry. 6. If you are not nursing, wear a good fitting, supportive bra during the day and limit fluid intake for at least 1 week to prevent breast engorgement. 7. Call the office, [phone], within the next week to make appointment for your 6 week checkup if it has not already been made. 8. Report any of the following occurrences to the doctor promptly: a. Heavy, excessive bleeding b. Chills, fever c. Burning or frequency of urination d. Pain or redness and breasts if nursing e. Increasing pain or swelling in episiotomy (stitches). In addition to the above instructions, the following additional should be follo wed: 1. No heavy lifting or straining (exercising) until after 6 week checkup. 2. Keep abdominal incision clean and dry: You may wear a dressing if more comfortable. 3. Make office appointment for 10 days after going home or as instructed by her doctor. Discharge Disposition: HOME SELF-CARE
[2021-11-27] MEDS: IBUPROFEN 600 MG TAB PO PRN (07:57)
[2021-11-27 08:06] LABS: Basophils % (A) 0 %; Eosinophils # (A) 0.1 k/uL (0-0.7); Eosinophils % (A) 0 %; HCT 32.5 % (34.0-46.0); HGB 10.7 gm/dL (11.4-16.0); Hypochromasia Moderate; Lymphocytes # (A) 1.9 k/uL (1.0-4.8); Lymphocytes % (A) 16 %; MCH 28.8 pg (25.0-35.0); MCHC 32.8 g/dL (31.0-37.0); MCV 87.9 fL (80.0-100.0); Monocytes # (A) 0.4 k/uL (0-1.0); Monocytes % (A) 4 %; Neutrophils % (A) 78 %; Platelet Count 207 k/uL (150-450); Poikilocytosis Slight; RBC 3.69 m/uL (3.80-5.40); RDW 13.4 % (11.5-15.5); WBC 11.6 k/uL (3.8-10.6)
[2021-11-27 08:53] VITALS: BP 116/76; TEMP 97.6
[2021-11-27] MEDS ORDERED: PRENATAL VIT-IRON-FOLIC ACID 1 EACH CAP PO SCH (09:00)
[2021-11-27 10:10] VITALS: PULSE 52; RESP 16
== END 2021-11-27 16:00 | disposition home or self-care (01) | DRG 807 ==
LOC: 4FBP 06:00
PROVIDERS: ADMIT Obstetrics & Gynecology; ATTEND Obstetrics & Gynecology
PROC: 10E0XZZ Delivery of Products of Conception, External Approach (ICD-10-PCS; principal; 2021-11-26)
PROC: 3E033VJ Introduction of Other Hormone into Peripheral Vein, Percutaneous Approach (ICD-10-PCS; principal; 2021-11-26)
PROC: 00HU33Z Insertion of Infusion Device into Spinal Canal, Percutaneous Approach (ICD-10-PCS; principal; 2021-11-26)
PROC: 3E0R3NZ Introduction of Analgesics, Hypnotics, Sedatives into Spinal Canal, Percutaneous Approach (ICD-10-PCS; principal; 2021-11-26)
PROC: 10907ZC Drainage of Amniotic Fluid, Therapeutic from Products of Conception, Via Natural or Artificial Opening (ICD-10-PCS; principal; 2021-11-26)
DX: O24.420 Gestational diabetes mellitus in childbirth, diet controlled (principal); Z37.0 Single live birth; O69.5XX0 Labor and delivery complicated by vascular lesion of cord, not applicable or unspecified; Z3A.37 37 weeks gestation of pregnancy; Z87.891 Personal history of nicotine dependence; Z98.890 Other specified postprocedural states; Z88.7 Allergy status to serum and vaccine; G43.909 Migraine, unspecified, not intractable, without status migrainosus; Z81.1 Family history of alcohol abuse and dependence; Z80.3 Family history of malignant neoplasm of breast
CPT/HCPCS: 83036; 85025; 86850; 86900; 86901; 88307